=== PATIENT | female | born 1955 | race Caucasian/White ===

== ENCOUNTER → 2018-05-06 | Outpatient (REF) | payer BC ==
[~2018-05-06] MED LIST: BYDUREON SC; GLIPIZIDE10 MG PO; LEVEMIR1000 UNITS SC; LEVOTHYROXIN150 MCG PO; LISINOPRIL10 MG PO; METFORMIN500 MG PO; ONDANSETRON4 MG PO; VENLAFAXINE HCL75 M1 PO; ZYRTEC10 MG PO
== END | disposition home or self-care (01) | DRG 204 ==
LOC: DI 12:55
DX: R05 Cough (principal)

== ENCOUNTER 2022-10-29 12:49 | Emergency (ER) | payer BC ==
[~2022-10-29] VITALS: Ht 162.6 cm; Wt 85.4 kg
[2022-10-29 13:00] VITALS: BP 126/61
[2022-10-29] MEDS ORDERED: FLOXIN OTIC0.3 % AS (13:13)
[2022-10-29] MEDS ORDERED: AMOX/K CLAV875 M1 PO (13:13)
== END 2022-10-29 13:28 | disposition home or self-care (01) | DRG 156 ==
LOC: ED 12:49
DX: H60.92 Unspecified otitis externa, left ear (principal)